=== PATIENT | female | born 2000 | race Two or more races ===

== ENCOUNTER 2021-01-21 06:53 | Emergency (ER) | payer BC, OTHER ==
[~2021-01-21] VITALS: Ht 167.6 cm; Wt 72.4 kg
--- NOTE | 2021-01-21 07:27 | NUR ---
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
--- NOTE | 2021-01-21 07:37 | NUR ---
pt presents to ed with c/o abdominal pain intermittent throughout all quadrants since last night. pt denies vomitting/diarrhea but states nausea. pt has hx of H. pylori 2 years ago and states GI pain on and off ever since, takes mirilax. pt a&o, resps even and unlabored, vss, nadn.
[2021-01-21] MEDS ORDERED: MAALOX/HYOSCYAMINE/LIDOCAINE 45 ML BTL ONE (07:46)
[2021-01-21] MEDS ORDERED: ONDANSETRON ODT 4 MG ONE (07:46)
--- NOTE | 2021-01-21 07:50 | NUR ---
PT MEDICATED PER ORDER, TOLERATED WELL. PT A&O, RESPS EVEN AND UNLABORED, VSS, NADN, CALL LIGHT IN REACH.
[2021-01-21 07:57] LABS: BASOPHILS % (AUTO) 0 % (0-1); EOSINOPHILS % (AUTO) 1 % (1-7); LYMPHOCYTES % (AUTO) 9 % (22-44); MEAN CORPUSCULAR HEMOGLOBIN 29.7 pg (27.0-34.8); MEAN CORPUSCULAR HGB CONC 34.6 g/dL (32.4-35.8); MEAN PLATELET VOLUME 7.5 fL (7.4-10.4); MONOCYTES % (AUTO) 4 % (2-9); NEUTROPHILS % (AUTO) 86 % (42-75); PLATELET COUNT 332 x10^3/uL (130-400); RED BLOOD COUNT 4.91 x10^6/uL (3.82-5.3); RED CELL DISTRIBUTION WIDTH 13.6 % (9.6-15.2)
[2021-01-21 07:57] LABS: MICROSCOPIC NOT IND
[2021-01-21] MEDS ORDERED: ONDANSETRON ODT 4 MG PO ONE (08:00)
[2021-01-21] MEDS ORDERED: MAALOX/HYOSCYAMINE/LIDOCAINE 45 ML BTL PO ONE (08:00)
[2021-01-21 08:08] LABS: ALBUMIN 3.6 g/dL (3.4-5.0); ANION GAP 7 mmol/L (5-15); CALCIUM 8.5 mg/dL (8.5-10.1); CHLORIDE 109 mmol/L (98-107)
[2021-01-21 08:14] LABS: ALANINE AMINOTRANSFERASE 18 U/L (12-78); ALKALINE PHOSPHATASE 60 U/L (45-117); BILIRUBIN,TOTAL 0.8 mg/dL (0.2-1.0); CREATININE 0.76 mg/dL (0.55-1.02); TOTAL PROTEIN 7.2 g/dL (6.4-8.2)
--- NOTE | 2021-01-21 09:05 | NUR ---
pt resting in bed, states nausea has gone away but still 7/10 abd pain. pt a&o, resps even and unlabored, vss, nadn. call light in reach.
--- NOTE | 2021-01-21 09:10 | NUR ---
ned Mixon at bedside to discuss poc
[2021-01-21 09:32] VITALS: BP 102/65
== END 2021-01-21 09:34 | disposition home or self-care (01) ==
LOC: ED 09:10
DX: K29.00 Acute gastritis without bleeding (principal)
CPT/HCPCS: 36415; 80053; 81003; 83690; 84703; 85025; 99283; Q0162